=== PATIENT | male | born 1990 | race African-American/Black ===

== ENCOUNTER → 2019-08-23 | Outpatient (CLI) | payer OTHER ==
[~2019-08-23] MED LIST: IOPAMIDOL 370 MG/ML 200 ML INFUS..BTL INJ ONE; SODIUM CHLORIDE 0.9% 50ML 50 ML ONE
--- NOTE | 2019-08-23 14:12 | Diagnostic Imaging Report ---
CT of the abdomen. Comparison: None Clinical History: Contusion, pain Technique: CT scan of the abdomen was performed. Intravenous contrast administration was utilized. Oral contrast administration was not utilized. Multiple images were submitted for interpretation. This exam was performed according to our departmental dose-optimization program which includes automated exposure control, adjustment of the mA and/or kV according to patient size Discussion: Inferior chest: Unremarkable Liver: Unremarkable Spleen: Unremarkable Pancreas: Unremarkable Biliary tree and gallbladder: Unremarkable Adrenal glands: Unremarkable Kidneys: Unremarkable Vasculature: Unremarkable Lymph nodes: Unremarkable Bowel: Unremarkable Fluid: Unremarkable Bones: Unremarkable Body wall: Soft tissue infiltration in the subcutaneous tissues of the left lateral abdominal wall just above the umbilicus consistent with the history of contusion. Impression: Left lateral abdominal wall subcutaneous contusion otherwise unremarkable. Signed by: Chidi Paulino MD on 08/23/2019 2:08 PM
== END ==
LOC: CT 11:41
PROVIDERS: ATTEND Family Medicine
DX: S30.1XXA Contusion of abdominal wall, initial encounter (principal)
CPT/HCPCS: 74160; Q9967

== ENCOUNTER → 2020-12-30 | Outpatient (CLI) | payer OTHER | LOC: US 09:51 | PROVIDERS: ATTEND Family Medicine | DX: S80.12XD Contusion of left lower leg, subsequent encounter (principal) | CPT/HCPCS: 76882 ==

== ENCOUNTER → 2021-01-07 | Outpatient (CLI) | payer OTHER | LOC: RAD 13:34 | PROVIDERS: ATTEND Family Medicine | DX: M79.662 Pain in left lower leg (principal) | CPT/HCPCS: 93971 ==